=== PATIENT | female | born 1940 | race Caucasian/White ===

== ENCOUNTER 2017-04-23 14:58 | Emergency (ER) | payer BC, OTHER ==
[2017-04-23 15:07] VITALS: TEMP 97.9; BMI 22.6
[2017-04-23] MEDS ORDERED: SODIUM PHOSPHATE/NA BIPHOS 133 ML ENEMA PR ONE (16:52)
--- NOTE | 2017-04-23 17:29 | PDOC ---
History of Present Illness - General Chief Complaint: Constipation Stated Complaint: CONSTIPATION Time Seen by Provider: 04/23/17 15:44 - History of Present Illness Initial Comments: 04/23/17 17:20 "The patient is a 76 year old female, with a significant past medical history of bladder CA, pancreatic cysts, bladder tear(s/p ) who presents to the emergency department complaining of constipation since last night. The patient reports she felt the urge to move her bowels today, however, she was unable to produce any stool. Patient reports using her standard regimen of stool softeners with no relief of constipation. This morning, patient tried an enema and mag citrate, with no relief. At that time, patient reports calling her GI doctor, who suggested patient try dulcolax supp, which also did not help. She reports her last full bowel movement was about 5 days ago, but she passed a small amount of stool yesterday. Pt endorses nausea without vomiting. Patient reports associated lower abdominal cramp-like pain, but denies any vomiting, diarrhea, melena, or hematochezia. She denies any fever or chills. She denies any recent travel or sick contacts. Allergies: Penicillins Past Surgical History: , Hysterectomy. Social History: Non smoker. No ETOH or recreational drug use. " Past History - Past Medical History Allergies/Adverse Reactions: Allergies Allergy/AdvReac Type Severity Reaction Status Date / Time Penicillins AdvReac Unknown Verified 04/23/17 15:08 Home Medications: Ambulatory Orders Omeprazole 0 mg PO DAILY 04/23/17 GI Disorders: Yes (CONSTIPATION) - Psycho/Social/Smoking Cessation Hx Anxiety: No Suicidal Ideation: No Smoking History: Never smoked Have you smoked in the past 12 months: No Information on smoking cessation initiated: No Hx Alcohol Use: No Drug/Substance Use Hx: No Substance Use Type: None Review of Systems - Review of Systems Comments:: 04/23/17 17:29 "GENERAL/CONSTITUTIONAL: No fever or chills. No weakness. HEAD, EYES, EARS, NOSE AND THROAT: No change in vision. No ear pain or discharge. No sore throat. CARDIOVASCULAR: No chest pain or shortness of breath. RESPIRATORY: No cough, wheezing, or hemoptysis. GASTROINTESTINAL: Yes: +constipation, +lower abdominal pain, +nausea. No vomiting, or diarrhea GENITOURINARY: No dysuria, hematuria, or frequency. MUSCULOSKELETAL: No joint or muscle swelling or pain. No neck or back pain. SKIN: No rash NEUROLOGIC: No headache, loss of consciousness, or change in strength/ sensation. ENDOCRINE: No increased thirst. No abnormal weight change. HEMATOLOGIC/LYMPHATIC: No anemia, easy bleeding, or history of blood clots. ALLERGIC/IMMUNOLOGIC: No hives or skin allergy. *Physical Exam - Vital Signs Last Vital Signs Temp Pulse Resp BP Pulse Ox 97.9 F 88 18 142/87 99 04/23/17 15:01 04/23/17 15:01 04/23/17 15:01 04/23/17 15:01 04/23/17 15:01 - Physical Exam Comments: 04/23/17 17:29 "GENERAL: Awake, alert, and fully oriented, in no acute distress HEAD: No signs of trauma EYES: PERRLA, EOMI, sclera anicteric, conjunctiva clear ENT: Auricles normal inspection, hearing grossly normal, nares patent, oropharynx clear without exudates. Moist mucosa NECK: Normal ROM, supple, no lymphadenopathy, JVD, or masses LUNGS: Breath sounds equal, clear to auscultation bilaterally. No wheezes, and no crackles HEART: Regular rate and rhythm, normal S1 and S2, no murmurs, rubs or gallops ABDOMEN: Soft, nontender, nondistended, normoactive bowel sounds. No guarding, no rebound. No masses EXTREMITIES: Normal range of motion, no edema. No clubbing or cyanosis. No cords, erythema, or tenderness NEUROLOGICAL: Cranial nerves II through XII grossly intact. Normal speech, normal gait SKIN: Warm, Dry, normal turgor, no rashes or lesions noted. " ED Treatment Course - LABORATORY CBC & Chemistry Diagram: 04/23/17 17:40 04/23/17 17:40 - RADIOLOGY Radiology Studies Ordered: Category Date Time Status ABDOMEN-KUB FLAT PLATE [RAD] Stat Radiology 04/23/17 16:52 Ordered Medical Decision Making - Medical Decision Making 04/23/17 17:30 76 F with constipation and lower abdominal cramps without vomiting. Abdomen completely benign on exam. However, given surgical history, will r/o obstructive process. - Labs - Abd XR - CTAP if indicated Sign out given to night team at 7PM. Abdominal XR with + air fluid levels, concerning for obstruction. CTAP ordered. Dispo pending CT. *DC/Admit/Observation/Transfer Diagnosis at time of Disposition: Proctitis, History of constipation - Discharge Dispostion Disposition: HOME Condition at time of disposition: Stable - Patient Instructions Printed Discharge Instructions: DI for Colitis Additional Instructions: Light diet; continue drinking plenty of fluids avoid strenuous activity for the next 2 days Follow-up with your gastroenterologists as discussed Return to ER if you experience worsening pain, vomiting or fever
[2017-04-23 18:26] LABS: MCH 33.7 pg (25.7-33.7); MCHC 34.5 g/dl (32.0-36.0); MEAN CELL VOLUME 97.6 fl (80-96); MEAN PLT VOLUME 10.6 fl (7.5-11.1); PLATELET COUNT 318 K/MM3 (134-434); WHITE BLOOD COUNT 19.4 K/mm3 (4.0-10.8)
[2017-04-23 18:34] LABS: ALBUMIN 4.3 g/dl (3.5-5.0); ALK PHOS 67 U/L (32-92); ANION GAP 8 (8-16); BILIRUBIN,TOTAL 0.7 mg/dl (0.2-1.0); CALCIUM 9.1 mg/dl (8.4-10.2); CO2 26 mmol/L (22-28); CREATININE 0.7 mg/dl (0.6-1.3); GLUCOSE,RANDOM 119 mg/dl (74-106); SGOT/AST 35 U/L (10-42); SGPT/ALT 24 U/L (10-40); TOT PROT 6.9 g/dl (6.4-8.3)
[2017-04-23 18:43] LABS: INR 0.89 (0.82-1.09)
[2017-04-23 18:58] LABS: PLATELET ESTIMATE SLT INCREASED (NORMAL)
[2017-04-23 19:12] VITALS: BP 102/65; PULSE 90
--- NOTE | 2017-04-23 20:11 | PDOC ---
*Physical Exam - Vital Signs Last Vital Signs Temp Pulse Resp BP Pulse Ox 97.9 F 90 18 102/65 97 04/23/17 15:01 04/23/17 19:00 04/23/17 19:00 04/23/17 19:00 04/23/17 19:00 ED Treatment Course - LABORATORY CBC & Chemistry Diagram: 04/23/17 17:40 04/23/17 17:40 - ADDITIONAL ORDERS Additional order review: Laboratory Results 04/23/17 04/23/17 17:40 17:40 PT with INR 10.0 L INR 0.89 L PTT (Actin FS) 24.0 L Sodium 130 L Potassium 4.4 Chloride 96 L Carbon Dioxide 26 Anion Gap 8 BUN 21 H Creatinine 0.7 Creat Clearance w eGFR > 60 Random Glucose 119 H Calcium 9.1 Total Bilirubin 0.7 AST 35 ALT 24 Alkaline Phosphatase 67 Total Protein 6.9 Albumin 4.3 04/23/17 17:40 RBC 4.51 MCV 97.6 H MCHC 34.5 RDW 14.0 MPV 10.6 Neutrophils % No Result Required. Lymphocytes % No Result Required. - Medications Given in the ED: ED Medications Discontinued Medications Generic Name Dose Route Start Last Admin Trade Name Freq PRN Reason Stop Dose Admin Sodium Phosphate 133 ml 04/23/17 16:52 04/23/17 18:07 Fleet Adult Rectal Enema - [place] 04/23/17 16:53 133 ml ONCE ONE Administration Progress Note - Progress Note Progress Note: Care of this patient received from . Flat and upright x-ray of patient's abdomen prior to administration of enema and subsequent large bowel movement revealed dilated small bowel with multiple air-fluid levels. Although the patient feels improved now, she still has some abdominal discomfort. In light of the results of the x-ray and patient's elevated white blood cell count of 19,000, repeat F UA performed. Repeat flat and upright x-ray of the abdomen revealed persistent dilated bowel with multiple air-fluid levels. She denies nausea and has not had any vomiting while she has been here. Exam revealed no significant distention or tenderness in her abdomen. Findings discussed with the patient and her . Although dilated small bowel and air-fluid levels may be related to her post impaction/constipation state, other abnormalities (such as small bowel obstruction) cannot be fully ruled out without further imaging (i.e. CT) Because patient has had multiple CT studies in the past, she is very hesitant about having any further imaging tonight. Patient contacted one of her tower director (Dr. Lopez). I discussed his patient's presentation and results. He agreed that patient needs further imaging tonight and communicated to the patient that he thinks she should have a CT prior to being discharged. Patient agreed to abdominal/pelvic CT to fully rule out small bowel obstruction or other acute intra-abdominal pathology. Of note, the patient reported previous adverse effect IV contrast, so only oral contrast given. Abdominal/pelvic CT performed and interpreted by Dr. Morrison of the radiology staff. No evidence of small bowel mechanical obstruction. There is still some residual dilatation of the small bowel without clear cut off. There is moderate rectal wall inflammation consistent with proctitis but no abscess. No evidence of acute diverticulitis. Results discussed with the patient and her . She continues to feel improved as compared to her presentation complaints and has not developed nausea /vomiting. Patient discharged with copy of her CT results and laboratory values which she will share with her gastroenterologists tomorrow. She will follow a light diet and return to ER if she has worsening pain or develops fever /vomiting. *DC/Admit/Observation/Transfer Diagnosis at time of Disposition: Proctitis, History of constipation - Discharge Dispostion Disposition: HOME Condition at time of disposition: Stable - Patient Instructions Printed Discharge Instructions: DI for Colitis Additional Instructions: Light diet; continue drinking plenty of fluids avoid strenuous activity for the next 2 days Follow-up with your gastroenterologists as discussed Return to ER if you experience worsening pain, vomiting or fever
== END 2017-04-24 00:21 | disposition home or self-care (01) ==
LOC: FER 14:58
DX: K62.89 Other specified diseases of anus and rectum (principal); K59.00 Constipation, unspecified; Z85.51 Personal history of malignant neoplasm of bladder
CPT/HCPCS: 36415; 74000-TC; 74176-TC; 80053; 85025; 85610; 85730; 86850; 86900; 86901; 99282-25